=== PATIENT | female | born 1970 | race Caucasian/White ===

== ENCOUNTER 2022-05-05 15:59 | Emergency (ER) | payer MEDICARE, SELFPAY ==
[2022-05-05 16:12] VITALS: BP 135/86; PULSE 85; RESP 16; TEMP 36.2; O2SAT 99
--- NOTE | 2022-05-05 17:08 | USR_ITS ---
PROCEDURE INFORMATION: Exam: US Duplex Right Lower Extremity Veins, Limited Exam date and time: 05/05/2022 5:46 PM Age: 51 years old Clinical indication: Leg, lower; Patient HX: Pain and swelling right calf and posterior knee S/P ground-level fall 4 days ago. No history of dvt per patient. Patient denies redness / erythema. ; Additional info: Redness and swelling leg TECHNIQUE: Imaging protocol: Real-time Duplex ultrasound of the Right Lower Extremity with 2-D salazar scale, color Doppler flow and spectral waveform analysis with image documentation. Limited exam was focused on the right lower extremity veins. COMPARISON: CR (LOW EXM, ) 05/05/2022 5:35 PM FINDINGS: Right deep veins: Unremarkable. The common femoral, femoral, proximal profunda femoral and popliteal veins are patent without thrombus. Normal Doppler waveforms. Normal compressibility and/or augmentation response. Right superficial veins: Unremarkable. Saphenofemoral junction is patent without thrombus. Soft tissues: Unremarkable. US/[place] [id number] IMPRESSION: No evidence of deep vein thrombosis, right lower extremity.
--- NOTE | 2022-05-05 17:12 | XRR_ITS ---
PROCEDURE INFORMATION: Exam: XR Right Knee Exam date and time: 05/05/2022 5:35 PM Age: 51 years old Clinical indication: Pain; Knee; Right; Additional info: Knee swelling TECHNIQUE: Imaging protocol: Radiologic exam of the Right knee. Views: 3 views. COMPARISON: No relevant prior studies available. FINDINGS: Bones/joints: No fracture or other acute osseous abnormality. Small joint effusion. No narrowing or widening of the joint space. Soft tissues: The soft tissues appear unremarkable. XR/XR knee RT 3V* [id number] IMPRESSION: 1. Small joint effusion. 2. No acute osseous abnormality demonstrated.
--- NOTE | 2022-05-05 17:40 | ED_ITS ---
HPI - Extremity Problem General: Chief complaint: Extremity Problem,Nontraumatic Stated complaint: right leg swollen, sent by Time Seen by Provider: 05/05/22 17:29 History of Present Illness: Patient was being seen by her primary care office today for concerns of swelling in her right knee and discomfort posteriorly. Patient fallen about 3 days ago and did not think she injured her knee but since then she has had increased discomfort and swelling to the knee. Primary care was concerned for DVT and referred her to the emergency department. Patient was also started on high blood pressure medication due to some elevation in her blood pressure and palpitations. Patient does report a history of high blood pressure but without any medication use. No chronic routine medications were prescribed at that time. Patient was prescribed lisinopril 10 mg. Associated symptoms: Deny fever(s) Review of Systems Const: Denies: fever(s) Resp: Denies: dyspnea Musc: Reports: joint swelling (Right knee) Physical Exam Const: COMMON NORMALS: alert HENMT: COMMON NORMALS: normocephalic HEAD & SCALP: normocephalic Neck/C-Spine: COMMON NORMALS: full ROM Resp: COMMON NORMALS: normal respiratory effort and clear to auscultation bi laterally AUSCULTATION: clear to auscultation bilaterally Cardio: COMMON NORMALS: regular rate RATE: regular rate Extremity: RIGHT LOWER EXTREMITY: Yes knee joint (Mild anterior swelling, tenderness in the posterior knee.) and Yes lower leg (No swelling or redness is noted to the calf or lower leg.) Neuro: SENSORIUM/ORIENTATION: Yes alert Skin: COMMON NORMALS: turgor normal GENERAL SKIN EXAM: turgor normal Course Vital Signs: Vital signs: Vital Signs Temperature 97.1 F L 05/05/22 16:12 Pulse Rate 85 05/05/22 16:12 Respiratory Rate 16 05/05/22 16:12 Blood Pressure 135/86 05/05/22 16:12 Pulse Oximetry 99 05/05/22 16:12 MDM - Extremity (Nontraumatic) Medical Decision Making 51-year-old female comes in today for concerns of tenderness and swelling to the right knee. On exam there is some anterior tenderness with mild swelling. Patient has good range of motion of the knee. Distal pulses and sensation are intact. Patient has some tenderness to the posterior aspect of the knee. Differential diagnosis includes but not limited to knee sprain, osteoarthritis, Anna's cyst, DVT. EKG showed a sinus rhythm with no ST elevation or ectopy. CBC and CMP were unremarkable. Ultrasound of the lower extremity noted no DVT. X-ray noted a small joint effusion. I believe the swelling is probably most likely due to this joint effusion causing her pain and discomfort. Patient does have some concerns due to her palpitations she has had in her chest at times in which she has been evaluated. I think it might be related to patient's blood pressure which she hopefully will have improvement after initiating her routine medication regimen. Patient did ask about maybe dropping the lisinopril to a lesser dose due to the fact that her blood pressure did get to 90/70 after taking the first dose and then raising up to 106 systolic. She was just concerned when it got into the 90s systolic. I would think it would be okay to drop the tablet in half and then monitor but we did agree that her primary care provider should be consulted for this change. Lab Data : 05/05/22 17:29 05/05/22: Radiology Impressions Venous Duplex 05/05/22 17:08 IMPRESSION: No evidence of deep vein thrombosis, right lower extremity. Knee X-Ray 05/05/22 17:12 IMPRESSION: 1. Small joint effusion. 2. No acute osseous abnormality demonstrated. Laboratory Results WBC 7.8 10^3/uL (4.0-10.0) 05/05/22: RBC 5.38 10^6/uL (4.1-5.3) H 05/05/22: Hgb 16.2 g/dL (11.5-15.3) H 05/05/22: Hct 49.3 % (37.0-47.0) H 05/05/22: MCV 91.6 fl (81-99) 05/05/22: MCH 30.1 pg (28.0-34.0) 05/05/22: MCHC 32.9 g/dL (30.0-36.0) 05/05/22: RDW 12.0 % (12.1-15.1) L 05/05/22: Plt Count 288 10^3/cmm (130-400) 05/05/22: MPV 9.3 fL (7.4-10.4) 05/05/22 17: Neut % (Auto) 70.1 % 05/05/22: Lymph % (Auto) 22.8 % 05/05/22 17: Dickens % (Auto) 5.7 % 05/05/22: Eos % (Auto) 0.5 % 05/05/22 17: Baso % (Auto) 0.6 % 05/05/22: Neut # (Auto) 5.46 10^3/uL (1.8-7.7) 05/05/22: Lymph # (Auto) 1.8 10^3/uL (0.8-4.8) 05/05/22: Dickens # (Auto) 0.4 10^3/uL (0.2-0.9) 05/05/22: Eos # (Auto) 0.0 10^3/uL (0.0-0.8) 05/05/22: Baso # (Auto) 0.1 10^3/uL (0.0-0.1) 05/05/22: Nucleated RBC % (auto) 0 % 05/05/22: Nucleated RBCs # 0.0 /100WBC 05/05/22: Sodium 133 mmol/L (136-145) L 05/05/22 17: Potassium 4.6 mmol/L (3.5-5.1) 05/05/22: Chloride 98 mmol/L (98-107) 05/05/22: Carbon Dioxide 21 mmol/L (22-29) L 05/05/22: Anion Gap 18.6 (5-19) 05/05/22: BUN 9 mg/dL (6-20) 05/05/22: Creatinine 0.6 mg/dL (0.5-0.9) 05/05/22: GFR Calculation 105.0 mL/min (90-130) 05/05/22: Glucose 123 mg/dL (65-115) H 05/05/22: Calculated Osmolality 276 mOsm/kg (285-295) L 05/05/22: Calcium 9.6 mg/dL (8.5-10.5) 05/05/22 17:29 Total Bilirubin 0.6 mg/dL (0.15-1.2) 05/05/22 17:29 AST 20 U/L (0-32) 05/05/22 17:29 ALT 18 U/L (0-33) 05/05/22 17:29 Alkaline Phosphatase 68 U/L (35-105) 05/05/22 17:29 Total Protein 8.0 g/dL (6.6-8.7) 05/05/22 17:29 Albumin 4.8 g/dL (3.5-5.2) 05/05/22 17:29 Globulin 3.2 g/dL (1.3-4.6) 05/05/22 17:29 Discharge Plan Discharge Patient Disposition: Home Clinical Impression: Effusion of knee joint right Condition: Stable Discharge Orders: Discharge ED (Routine); Ordered 05/05/22 Ordered By: Kodak Leblanc Referrals: Coral Munoz, DRESS FINISHER [Primary Care Provider] - Discharge Diet: Usual diet Discharge Activity: Increase activity as tolerated Patient Instructions: Swollen Knee Joint (ED) Activity Restrictions/Additional Instructions: Activity as tolerated. Acetaminophen or ibuprofen as needed for pain and inflammation. Continue with routine care as directed. Follow-up with primary care for further instruction. Return to ER for new concerns. Coding Level of Care Code ED Dermatology Physician for Kristin Fwalona Exam Detailed
[2022-05-05 17:44] LABS: Basophils # 0.1 10^3/uL (0.0-0.1); Basophils % 0.6 %; Eosinophils % 0.5 %; Hematocrit 49.3 % (37.0-47.0); Hemoglobin 16.2 g/dL (11.5-15.3); Lymphocytes # 1.8 10^3/uL (0.8-4.8); Lymphocytes % 22.8 %; Mean Corpuscular HGB Conc 32.9 g/dL (30.0-36.0); Mean Corpuscular Hemoglobin 30.1 pg (28.0-34.0); Mean Corpuscular Volume 91.6 fl (81-99); Mean Platelet Volume 9.3 fL (7.4-10.4); Monocytes # 0.4 10^3/uL (0.2-0.9); Monocytes % 5.7 %; Neutrophils # 5.46 10^3/uL (1.8-7.7); Neutrophils % 70.1 %; Nucleated Red Blood Cells % 0 %; Platelet Count 288 10^3/cmm (130-400); Red Blood Count 5.38 10^6/uL (4.1-5.3); White Blood Count 7.8 10^3/uL (4.0-10.0)
--- NOTE | 2022-05-05 17:57 | ECG_ITS ---
[facility] Test Date: 2022-05-05 Pat Name: Dolores Broussard Department: Room: Gender: Female Rolling Attendant: : 1970 Requested By: Kodak Pierre Order Number: [id number] [place] MD: Doug Lee M.D. Measurements Intervals [place] Rate: 78 P: 79 SC: 119 QRS: 83 QRSD: 83 T: 71 QT: 391 QTc: 448 Interpretive Statements SINUS RHYTHM WITH SINUS ARRHYTHMIA WITH SHORT SC INTERVAL MINIMAL ST DEPRESSION [0.025+ mV ST DEPRESSION] No previous ECG available for comparison Electronically Signed On 05-05-2022 22:43:40 CDT by Doug Lee M.D. [id number] f
[2022-05-05 18:05] LABS: Alanine Aminotransferase 18 U/L (0-33); Albumin Level 4.8 g/dL (3.5-5.2); Alkaline Phosphatase 68 U/L (35-105); Blood Urea Nitrogen 9 mg/dL (6-20); Calcium 9.6 mg/dL (8.5-10.5); Carbon Dioxide 21 mmol/L (22-29); Chloride 98 mmol/L (98-107); Globulin 3.2 g/dL (1.3-4.6); Glucose 123 mg/dL (65-115); Osmolality Calculated 276 mOsm/kg (285-295); Sodium 133 mmol/L (136-145); Total Bilirubin 0.6 mg/dL (0.15-1.2)
[2022-05-05 18:06] LABS: Anion Gap 18.6 (5-19); Aspartate Amino Transferase 20 U/L (0-32); Potassium 4.6 mmol/L (3.5-5.1)
== END 2022-05-05 19:16 | disposition home or self-care (01) ==
PROVIDERS: Emergency Provider Nurse Practitioner Family; PCP Nurse Practitioner
DX: M25.461 Effusion, right knee (principal)
CPT/HCPCS: 36415; 73562; 80053; 85025; 93005; 93971; 99285

== ENCOUNTER 2022-09-22 15:50 | Emergency (ER) | payer MEDICARE, SELFPAY ==
[2022-09-22 16:08] VITALS: BP 146/98; PULSE 93; RESP 16; TEMP 36.3; O2SAT 98
--- NOTE | 2022-09-22 16:11 | ECG_ITS ---
[facility] Test Date: 2022-09-22 Pat Name: Dolores Broussard Department: Room: Gender: Female Marketing Development Manager: : 1970 Requested By: John Paz Order Number: [id number] [place] MD: Nancy Coe M.D. Measurements Intervals [place] Rate: 91 P: 64 PA: 116 QRS: 68 QRSD: 89 T: 45 QT: 382 QTc: 470 Interpretive Statements SINUS RHYTHM WITH SHORT PA INTERVAL WITH OCCASIONAL SUPRAVENTRICULAR PREMATURE COMPLEXES NONSPECIFIC ST & T-WAVE ABNORMALITY INTERPRETATION BASED ON A DEFAULT AGE OF 40 YEARS Compared to ECG 05/05/2022 18:51:39 T-wave abnormality now present Sinus arrhythmia no longer present ST (T wave) deviation no longer present Electronically Signed On 09-22-2022 19:11:08 CUSTOMER SUPPORT PROFESSIONAL by Nancy Coe M.D. [email or web address] [facility].[email or web address]/[id number] f
--- NOTE | 2022-09-22 18:53 | XRR_ITS ---
PROCEDURE INFORMATION: Exam: XR Chest Exam date and time: 09/22/2022 7:11 PM Age: 52 years old Clinical indication: Pain; Chest pressure; Additional info: Palpitations, shortness TECHNIQUE: Imaging protocol: Radiologic exam of the chest. Views: 1 view. COMPARISON: No relevant prior studies available. FINDINGS: Lungs: Unremarkable. No consolidation. Pleural spaces: Unremarkable. No pleural effusion. No pneumothorax. Heart/Mediastinum: Unremarkable. No cardiomegaly. Bones/joints: Unremarkable. XR/XR chest 1V portable [id number] IMPRESSION: No acute findings.
--- NOTE | 2022-09-22 18:58 | W.ED.CHESTPA ---
HPI - Chest Pain General: Chief Complaint: Chest Pain Stated Complaint: sent by PCP due to EKG result Time Seen by Provider: 09/22/22 16:28 History of Present Illness: This 52-year-old female was sent to the ER for evaluation by her primary care provider who noted that while patient was at the office she was having A-fib that was quickly converting back and forth. Patient on the other hand tells me that she wore her pulse oximeter last night and her heart rate would occasionally drop to the 40s. It was not sustained. Patient noted that she would get weak when the heart rate drops. Here in the ER, she has not been bradycardic. She denies chest pain or shortness of breath. She has no fever, nausea or vomiting. Patient is clinically stable. Review of Systems Const: Denies: chills, body aches or change in appetite Eyes: Denies: change in vision or eye discharge ENMT: Denies: throat pain, dental pain or nasal discharge Card: Reports: other (Slow and fast heart rate.); Denies: chest pain or lightheadedness : Denies: dysuria Musc: Denies: neck pain or back pain Neuro: Denies: headache(s) or weakness in extremities Psych: Denies: depression Obie/Lymph: Denies: easy bruising All/Imm: Denies: urticaria, tongue swelling or facial swelling Physical Exam Const: COMMON NORMALS: no acute distress, patient oriented x3, no limitations and alert HENMT: COMMON NORMALS: normocephalic HEAD & SCALP: normocephalic Eye: COMMON NORMALS: EOMs intact bilaterally Neck/C-Spine: COMMON NORMALS: full ROM and supple Chest: COMMONS NORMALS: normal inspection of the chest Resp: COMMON NORMALS: normal respiratory effort, No retractions, No use of accessory muscles and clear to auscultation bilaterally AUSCULTATION: clear to auscultation bilaterally Cardio: COMMON NORMALS: regular rate and No murmurs present (Cardio) RATE: regular rate RHYTHM: other (Irregular) GI: COMMON NORMALS: Normal to inspection, nondistended, normoactive bowel sounds present and non-tender : COMMON NORMALS: Yes no CVA tenderness BLADDER/KIDNEY EXAM: Yes no CVA tenderness Back/Pelvis: COMMON NORMALS: no CVA tenderness and no thoracic nor lumbar tenderness Extremity: GENERAL: Yes normal exam except as noted Neuro: COMMON NORMALS: patient oriented x3 and no focal motor deficits SENSORIUM/ORIENTATION: Yes alert Psych: COMMON NORMALS: mental status grossly normal and cooperative Course Vital Signs: Vital signs: Vital Signs Temperature 97.3 F L 09/22/22 16:08 Pulse Rate 85 09/22/22 21:17 Respiratory Rate 14 09/22/22 21:17 Blood Pressure 141/62 09/22/22 21:17 Pulse Oximetry 99 09/22/22 21:17 Oxygen Delivery Me thod Nasal Cannula 09/22/22 21:17 MDM - Chest Pain Medical Decision Making Medical decision making: Patient presents to the ER primarily with palpitations. She remains pain-free. While here in the ER, she was mainly in normal sinus rhythm and would occasionally throw an extrasystole. These are nonsustained and patient's blood pressure and oxygen saturation remained completely normal throughout her stay. While I believe these extrasystole are benign, she will benefit from an outpatient Holter monitor. An order was put in for an outpatient Holter monitor and patient was advised to follow-up with her primary care physician. Reasons to return were discussed and patient agrees with the plan. Lab Data 09/22/22 19:26 09/22/22 19:26 Radiology Impressions Chest X-Ray 09/22/22 18:53 IMPRESSION: No acute findings. Laboratory Results WBC 7.4 10^3/uL (4.0-10.0) 09/22/22 19: RBC 5.10 10^6/uL (4.1-5.3) 09/22/22 19: Hgb 15.0 g/dL (11.5-15.3) 09/22/22 19: Hct 44.9 % (37.0-47.0) 09/22/22 19: MCV 88.0 fl (81-99) 09/22/22 19: MCH 29.4 pg (28.0-34.0) 09/22/22 19: MCHC 33.4 g/dL (30.0-36.0) 09/22/22 19: RDW 11.9 % (12.1-15.1) L 09/22/22 19: Plt Count 378 10^3/cmm (130-400) 09/22/22 19: MPV 9.5 fL (7.4-10.4) 09/22/22 19: Neut % (Auto) 67.1 % 09/22/22 19: Lymph % (Auto) 26.0 % 09/22/22 19: Millard % (Auto) 6.0 % 09/22/22 19: Eos % (Auto) 0.3 % 09/22/22 19: Baso % (Auto) 0.5 % 09/22/22: Neut # (Auto) 4.94 10^3/uL (1.8-7.7) 09/22/22: Lymph # (Auto) 1.9 10^3/uL (0.8-4.8) 09/22/22: Millard # (Auto) 0.4 10^3/uL (0.2-0.9) 09/22/22: Eos # (Auto) 0.0 10^3/uL (0.0-0.8) 09/22/22: Baso # (Auto) 0.0 10^3/uL (0.0-0.1) 09/22/22: Nucleated RBC % (auto) 0 % 09/22/22: Nucleated RBCs # 0.0 /100WBC 09/22/22 19: Sodium 138 mmol/L (136-145) 09/22/22 19: Potassium 4.0 mmol/L (3.5-5.1) 09/22/22: Chloride 98 mmol/L (98-107) 09/22/22 19: Carbon Dioxide 25 mmol/L (22-29) 09/22/22 19: Anion Gap 19.0 (5-19) 09/22/22 19: BUN 7 mg/dL (6-20) 09/22/22 19: Creatinine 0.6 mg/dL (0.5-0.9) 09/22/22 19: GFR Calculation 104.6 mL/min (90-130) 09/22/22 19: Glucose 134 mg/dL (65-115) H 09/22/22 19: Calculated Osmolality 286 mOsm/kg (285-295) 09/22/22 19:26 Calcium 10.2 mg/dL (8.5-10.5) 09/22/22 19:26 Total Bilirubin 0.6 mg/dL (0.15-1.2) 09/22/22 19:26 AST 19 U/L (0-32) 09/22/22 19:26 ALT 17 U/L (0-33) 09/22/22 19:26 Alkaline Phosphatase 62 U/L (35-105) 09/22/22 19:26 Troponin T Baseline 6 ng/L (0-10) 09/22/22 19:26 Total Protein 8.0 g/dL (6.6-8.7) 09/22/22 19: Albumin 4.5 g/dL (3.5-5.2) 09/22/22 19: Globulin 3.5 g/dL (1.3-4.6) 09/22/22 19:26 Discharge Plan Discharge Patient Disposition: Home Clinical Impression: Heart palpitations, Arrhythmia Condition: Stable Discharge Orders: Discharge ED (Routine); Ordered 09/22/22 Ordered By: Collette Xiao Referrals: Coral Munoz, JANITOR CLEANER [Primary Care Provider] - Discharge Diet: Usual diet Discharge Activity: Resume usual activity Patient Instructions: Opioid Safety, Pain Management Activity Restrictions/Additional Instructions: You will soon be contacted for an outpatient Holter monitor. Be sure to keep the appointment. Follow-up with your primary care physician in 3 to 5 days for reevaluation. Return if your condition worsens or you develop any new concerning symptoms. Coding Level of Care Code ED President [place] for Kristin Tucker
--- NOTE | 2022-09-22 19:30 | ECG_ITS ---
[facility] Test Date: 2022-09-22 Pat Name: Dolores Broussard Department: Room: Gender: Female Construction Supervisor/Carpenter: : 1970 Requested By: Collette Parisi Order Number: [id number] [place] MD: Doug Lee M.D. Measurements Intervals [place] Rate: 89 P: 62 MS: 95 QRS: 71 QRSD: 90 T: 51 QT: 392 QTc: 477 Interpretive Statements SINUS RHYTHM WITH SHORT MS INTERVAL WITH FREQUENT SUPRAVENTRICULAR PREMATURE COMPLEXES MINIMAL ST DEPRESSION [0.025+ mV ST DEPRESSION] Compared to ECG 09/22/2022 16:06:22 ST (T wave) deviation now present T-wave abnormality no longer present Electronically Signed On 09-23-2022 17:38:39 HEALTH POLICY ANALYST by Doug Lee M.D. [email or web address] [email or web address]/store/[id number]
[2022-09-22 19:35] VITALS: BP 142/71; PULSE 75; RESP 16; O2SAT 97
[2022-09-22 19:46] LABS: Basophils % 0.5 %; Eosinophils % 0.3 %; Hematocrit 44.9 % (37.0-47.0); Lymphocytes # 1.9 10^3/uL (0.8-4.8); Mean Corpuscular HGB Conc 33.4 g/dL (30.0-36.0); Mean Corpuscular Hemoglobin 29.4 pg (28.0-34.0); Mean Platelet Volume 9.5 fL (7.4-10.4); Monocytes # 0.4 10^3/uL (0.2-0.9); Neutrophils # 4.94 10^3/uL (1.8-7.7); Neutrophils % 67.1 %; Nucleated Red Blood Cells % 0 %; Platelet Count 378 10^3/cmm (130-400); Red Cell Distribution Width 11.9 % (12.1-15.1); White Blood Count 7.4 10^3/uL (4.0-10.0)
[2022-09-22 19:57] LABS: Troponin(5th) Baseline 6 ng/L (0-10)
[2022-09-22 19:58] LABS: Alanine Aminotransferase 17 U/L (0-33); Albumin Level 4.5 g/dL (3.5-5.2); Alkaline Phosphatase 62 U/L (35-105); Aspartate Amino Transferase 19 U/L (0-32); Blood Urea Nitrogen 7 mg/dL (6-20); Calcium 10.2 mg/dL (8.5-10.5); Carbon Dioxide 25 mmol/L (22-29); Chloride 98 mmol/L (98-107); Globulin 3.5 g/dL (1.3-4.6); Glomerular Filtration Rate 104.6 mL/min (90-130); Glucose 134 mg/dL (65-115); Osmolality Calculated 286 mOsm/kg (285-295); Sodium 138 mmol/L (136-145); Total Bilirubin 0.6 mg/dL (0.15-1.2)
[2022-09-22 21:17] VITALS: BP 141/62; PULSE 85; RESP 14; O2SAT 99
[2022-09-22 22:00] VITALS: BP 139/68; PULSE 76; RESP 15; O2SAT 99
[2022-09-22 22:53] VITALS: BP 141/62; PULSE 64; RESP 18; O2SAT 99
--- NOTE | 2022-09-23 14:33 | DCPLANNER ---
Addendum entered by Keyonna Mazariegos 10/09/22 11:25: coding manager received the following message from heart care front office regarding follow up appointment: [place] [facility] placed a monitor on patient On 09/25/22 @ 10:49 Khalida Kam Wrote To Keyonna Mazariegos Spoke with patient at this time patient stated she was going to go to [place] to the Er. Patient stated deoending on what [place] says she may or may not call back to reschedule. Thank you. On 09/24/22 @ 10:56 Khalida Kam Wrote To Heart Care Front Office Attempted to call patient. Left vm to call back. Original Note: coding manager had message to schedule an outpatient halter monitor for patient. coding manager faxed signed order to heart care, who will call patient with appointment information.
== END 2022-09-22 22:53 | disposition home or self-care (01) ==
PROVIDERS: Emergency Provider Family Medicine; PCP Nurse Practitioner
DX: R00.2 Palpitations (principal); I49.9 Cardiac arrhythmia, unspecified
CPT/HCPCS: 36415; 71045; 80053; 84484; 85025; 93005; 99285